=== PATIENT | female | born 1985 | race Caucasian/White ===

== ENCOUNTER 2018-02-22 18:33 | Emergency (ER) | payer MEDICAID ==
[~2018-02-22] VITALS: Ht 180.3 cm; Wt 71.8 kg
[~2018-02-22 18:33] MED LIST: DIPH-115 PO; LIDO20SO PO; PRED20TA PO
[2018-02-22 18:49] VITALS: BP 126/81
[2018-02-22] MEDS ORDERED: TRIA15CR61 TOP (19:32)
[2018-02-22] MEDS ORDERED: DIPH25CA83 PO (19:32)
[2018-02-22] MEDS ORDERED: triamcinolone acetonide 40mg/ml inj IM ONE (19:35)
== END 2018-02-22 19:49 | disposition home or self-care (01) ==
LOC: ER 18:34
DX: L25.9 Unspecified contact dermatitis, unspecified cause (principal); G89.29 Other chronic pain; Z79.899 Other long term (current) drug therapy
CPT/HCPCS: 96372; 99283; J3301

== ENCOUNTER 2025-08-02 07:55 | Emergency (ER) | payer MEDICAID ==
[~2025-08-02] VITALS: Ht 177.8 cm; Wt 78.0 kg
[~2025-08-02 07:55] MED LIST changes: +DIPH25CA83 PO
[2025-08-02] MEDS: ziprasidone IM 20mg inj **IM only IM ONE (09:00)
[2025-08-02 09:01] LABS: LEUKOCYTE ESTERASE ,URINE NEGATIVE (Neg); NITRITES, URINE NEGATIVE (Neg); OCCULT BLOOD,URINE NEGATIVE (Neg)
[2025-08-02 09:02] LABS: UA COLLECTION TYPE NON-SPECIFIED
[2025-08-02 09:08] LABS: RENAL CELLS, URINE FEW /HPF; SQUAMOUS EPITHELIAL CELL,UR MANY /LPF (FEW)
[2025-08-02] MEDS: ziprasidone IM 20mg inj **IM only ONE (09:14)
[2025-08-02 09:28] LABS: URINE AMPHETAMINE SCREEN NEGATIVE (Neg); URINE BARBITUATE SCREEN NEGATIVE (Neg); URINE BENZODIAZEPINES SCREEN NEGATIVE (Neg); URINE CANNABINOID SCREEN NEGATIVE (Neg); URINE COCAINE SCREEN NEGATIVE (Neg); URINE METHADONE SCREEN NEGATIVE (Neg); URINE OPIATE SCREEN NEGATIVE (Neg); URINE PHENCYCLIDINE SCREEN NEGATIVE (Neg)
[2025-08-02 10:04] LABS: MEAN PLATELET VOLUME 8.5 FL (7.4-10.4); RED CELL DISTRIBUTION WIDTH 15.6 % (11.5-14.5)
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
[2025-08-02] MEDS ORDERED: NO HOME MEDS (10:17)
[2025-08-02 10:23] LABS: CREATININE 1.08 MG/DL (0.40-0.90); TOTAL CARBON DIOXIDE 23.4 MMOL/L (24-32); eCRCL 76 ML/MIN; eGFR 57 ML/MIN
[2025-08-02 10:35] LABS: ETHANOL < 10 MG/DL (<10)
[2025-08-02] MEDS: nicotine 21mg patch - 24 hr TD ONE (17:16)
[2025-08-02] MEDS: NICOTINE POLACRILEX 2 MG LOZENGE BC PRN ×2 (17:17→21:00)
[2025-08-02 18:33] VITALS: TEMP 98
[2025-08-03 11:46] VITALS: BP 123/67; PULSE 72; RESP 18; O2SAT 95
[2025-08-03] MEDS: potassium Cl 20 mEq SR tablet PO STA (12:58)
[2025-08-03] MEDS: nicotine 14mg patch - 24hr TD ONE (12:59)
[2025-08-03 13:01] LABS: URINE HCG NEGATIVE (NEG)
[2025-08-03] MEDS: OLANZapine 5mg rapidly disint. tablet PO ONE (18:30)
== END 2025-08-03 19:58 ==
LOC: ER 07:56
DX: R45.1 Restlessness and agitation (principal); G89.29 Other chronic pain; Z20.822 Contact with and (suspected) exposure to COVID-19
CPT/HCPCS: 36415; 80053; 80305; 80320; 80329; 81001; 81025; 84443; 85025; 87811; 96372; 99285; J3486; Q0163; Q0177